=== PATIENT | female | born 1990 | race Asian ===

== ENCOUNTER 2017-11-29 09:43 | Inpatient (IN) | payer MEDICAID ==
[~2017-11-29] VITALS: Ht 165.1 cm; Wt 60.3 kg
[2017-11-29 11:04] LABS: AMPHET/METH SCREEN,URINE NEGATIVE (NEGATIVE); BARBITURATE SCREEN, URINE NEGATIVE (NEGATIVE); BENZODIAZEPINES SCREEN,URINE NEGATIVE (NEGATIVE); CANNABINOID SCREEN,URINE NEGATIVE (NEGATIVE); COCAINE SCREEN,URINE NEGATIVE (NEGATIVE); METHADONE SCREEN, URINE NEGATIVE (NEGATIVE); OPIATE SCREEN,URINE NEGATIVE (NEGATIVE)
[2017-11-29 11:05] LABS: PHENCYCLIDINE SCREEN,URINE NEGATIVE (NEGATIVE)
[2017-11-29 11:06] LABS: BASOPHILS % (AUTO) 0.6 % (0.0-2.0); EOSINOPHILS % (AUTO) 0 % (1.0-6.0); HEMATOCRIT 39.2 % (36-46); HEMOGLOBIN 13.1 g/dL (12.0-16.0); LYMPHOCYTES # (AUTO) 0.8 K/uL (1.0-4.8); LYMPHOCYTES % (AUTO) 10.3 % (22.0-44.0); MEAN CORPUSCULAR HGB CONC 33.4 G/dL (31.0-37.0); MEAN CORPUSCULAR VOLUME 84 fL (80-100); MONOCYTES # (AUTO) 0.5 K/uL (0.1-1.0); MONOCYTES % (AUTO) 6.3 % (2.0-9.0); NEUTROPHILS # (AUTO) 6.3 K/uL (1.8-7.7); NEUTROPHILS % (AUTO) 82.8 % (40.0-70.0); PLATELET COUNT (AUTO) 321 K/uL (150-450); RED BLOOD CELL COUNT(AUTO) 4.68 MIL/uL (4.00-5.20); RED CELL DISTRIBUTION WIDTH 13.3 % (11.5-14.5)
[2017-11-29 11:24] LABS: ANION GAP 9 mmol/L (8-16); CARBON DIOXIDE 25 mmol/L (22-29); CHLORIDE 101 mmol/L (98-107); CREATININE 0.81 mg/dL (0.60-1.30); GLOMERULAR FILTR. RATE CALC > 60 mL/min (>60); GLUCOSE,RANDOM 102 mg/dL (70-110); SODIUM SERUM 135 mmol/L (136-145); UREA NITROGEN, BLOOD 9 mg/dL (7-18)
[2017-11-29 11:30] LABS: ALANINE AMINOTRANSFERASE 25 U/L (12-78); ALBUMIN 4.2 g/dL (3.4-5.0); ALKALINE PHOSPHATASE 67 U/L (46-116); ASPARTATE AMINOTRANSFERASE 18 U/L (15-37); BILIRUBIN,TOTAL 0.5 mg/dL (0.1-1.0); TOTAL PROTEIN, SERUM 7.8 g/dL (6.4-8.2)
[2017-11-29] MEDS ORDERED: HALOPERIDOL 5 MG TABLET PO ONE (12:15)
[2017-11-29] MEDS ORDERED: LORazepam 2 MG TABLET PO ONE (12:15)
[2017-11-29] MEDS ORDERED: DiphenhydrAMINE HCL 25 MG CAPSULE PO ONE (12:15)
[2017-11-29] MEDS ORDERED: LORazepam 2 MG TABLET PO PRN (12:45)
[2017-11-29] MEDS ORDERED: ZOLPIDEM TARTRATE 10 MG TABLET PO PRN (12:45)
[2017-11-29] MEDS ORDERED: HALOPERIDOL 5 MG TABLET PO PRN (12:45)
[2017-11-29 13:06] LABS: CHOLESTEROL 199 mg/dL (131-200); HDL CHOLESTEROL 67 mg/dL (40-60); LDL CHOL (CALC.) 120 mg/dL (0-130); TRIGLYCERIDES 59 mg/dL (15-150)
[2017-11-29 14:56] VITALS: BP 135/90
[2017-11-30] MEDS ORDERED: INFLUENZA VIRUS VACCINE QVS 2017-18 (3YR+)/PF 60 MCG/0.5 ML SYRINGE IM ONE (00:45)
[2017-11-30 06:58] VITALS: BP 128/78
[2017-11-30 08:37] VITALS: BP 108/62
[2017-11-30] MEDS ORDERED: IBUPROFEN 400 MG TABLET PO PRN (15:15)
[2017-11-30] MEDS ORDERED: ACETAMINOPHEN 325 MG TABLET PO PRN (15:15)
[2017-11-30 16:28] VITALS: BP 102/69
[2017-11-30] MEDS: OLANZapine 5 MG RAPDIS TABLET PO SCH (17:23)
[2017-12-01 08:38] VITALS: BP 100/51
[2017-12-01] MEDS: OLANZapine 5 MG RAPDIS TABLET PO SCH ×2 (08:41→17:07)
[2017-12-01 16:17] VITALS: BP 106/61
[2017-12-02] MEDS: OLANZapine 5 MG RAPDIS TABLET PO SCH (08:27)
[2017-12-02 08:54] VITALS: BP 117/77
[2017-12-02] MEDS ORDERED: OLAN5TAB40 PO (12:48)
== END 2017-12-02 14:30 | disposition home or self-care (01) | DRG 751 ==
LOC: EMS 09:45 → B3A 13:14
PROVIDERS: ADMIT Psychiatry & Neurology Child & Adolescent Psychiatry; ATTEND Psychiatry & Neurology Child & Adolescent Psychiatry
PROC: 3E0234Z Introduction of Serum, Toxoid and Vaccine into Muscle, Percutaneous Approach (ICD-10-PCS; principal; 2017-11-30)
DX: F29 Unspecified psychosis not due to a substance or known physiological condition (principal); I10 Essential (primary) hypertension; F17.200 Nicotine dependence, unspecified, uncomplicated; F10.10 Alcohol abuse, uncomplicated; F19.10 Other psychoactive substance abuse, uncomplicated; Z23 Encounter for immunization
CPT/HCPCS: 99285; G0480

== ENCOUNTER 2021-03-08 15:53 | Inpatient (IN) | payer MEDICAID ==
[~2021-03-08] VITALS: Ht 162.6 cm; Wt 78.6 kg
[~2021-03-08 15:53] MED LIST: OLAN5TAB40 PO
[2021-03-08] MEDS ORDERED: HALOPERIDOL 5 MG TABLET PO PRN (17:00)
[2021-03-08 17:15] VITALS: BP 119/78
[2021-03-09 00:41] VITALS: BP 117/73
[2021-03-09] MEDS ORDERED: IBUPROFEN 600 MG TABLET PO PRN (07:15)
[2021-03-09] MEDS ORDERED: BENZOCAINE/MENTHOL LOZENGE PO PRN (07:15)
[2021-03-09] MEDS ORDERED: ACETAMINOPHEN 325 MG TABLET PO PRN (07:15)
[2021-03-09] MEDS ORDERED: BACITRACIN 28 GM OINTMENT TP PRN (07:15)
[2021-03-09] MEDS ORDERED: MAG HYDROX/AL HYDROX/SIMETH ES 30 ML SUSPENSION UDCUP PO PRN (07:15)
[2021-03-09] MEDS ORDERED: CloNIDine HCL 0.1 MG TABLET PO PRN (07:15)
[2021-03-09] MEDS ORDERED: DOCUSATE SODIUM 100 MG CAPSULE PO PRN (07:15)
[2021-03-09] MEDS ORDERED: PETROLATUM,WHITE 28 GM JELLY TP PRN (07:15)
[2021-03-09] MEDS ORDERED: OMEPRAZOLE 20 MG CAPSULE PO PRN (07:15)
[2021-03-09] MEDS ORDERED: MAGNESIUM HYDROXIDE SUSPENSION 30 ML UDCUP PO PRN (07:15)
[2021-03-09] MEDS ORDERED: ONDANSETRON HCL 4 MG TABLET PO PRN (07:15)
[2021-03-09] MEDS ORDERED: ALBUTEROL SULFATE HFA 90 MCG/PUFF 8 GM INHALER IH PRN (07:15)
[2021-03-09] MEDS ORDERED: LOPERAMIDE HCL 2 MG CAPSULE PO PRN (07:15)
[2021-03-09 08:36] VITALS: BP 139/89
[2021-03-09 16:18] VITALS: BP 122/71
[2021-03-09] MEDS: LORazepam 2 MG TABLET PO PRN (16:24)
[2021-03-10] MEDS: ZOLPIDEM TARTRATE 10 MG TABLET PO PRN ×2 (00:54→21:00)
[2021-03-10 00:58] VITALS: BP 121/87
[2021-03-10 08:06] VITALS: BP 124/77
[2021-03-10] MEDS: LORazepam 2 MG TABLET PO PRN (08:34)
[2021-03-10 16:05] VITALS: BP 113/66
[2021-03-11 03:40] VITALS: BP 134/84
[2021-03-11] MEDS: RisperiDONE 1 MG TABLET PO SCH ×2 (08:34→16:27)
[2021-03-11 08:49] VITALS: BP 133/86
[2021-03-11 16:13] VITALS: BP 125/76
[2021-03-11] MEDS: ZOLPIDEM TARTRATE 10 MG TABLET PO PRN (21:41)
[2021-03-12 00:21] VITALS: BP 126/85
[2021-03-12] MEDS: RisperiDONE 1 MG TABLET PO SCH ×2 (08:53→16:33)
[2021-03-12 08:56] VITALS: BP 126/81
[2021-03-12] MEDS: LORazepam 2 MG TABLET PO PRN (13:08)
[2021-03-12 16:14] VITALS: BP 120/84
[2021-03-13 00:20] VITALS: BP 104/61
[2021-03-13 07:18] LABS: COVID AG,FIA SOURCE NASOPHARYNGEAL
[2021-03-13 08:13] VITALS: BP 121/65
[2021-03-13] MEDS: RisperiDONE 1 MG TABLET PO SCH ×2 (08:16→16:27)
[2021-03-13 16:22] VITALS: BP 117/60
[2021-03-13] MEDS: ZOLPIDEM TARTRATE 10 MG TABLET PO PRN (22:08)
[2021-03-14 06:00] VITALS: BP 138/88
[2021-03-14] MEDS: LORazepam 2 MG TABLET PO PRN ×2 (06:39→16:09)
[2021-03-14 08:08] VITALS: BP 130/64
[2021-03-14] MEDS: RisperiDONE 3 MG TABLET PO SCH ×2 (08:14→16:07)
[2021-03-14 16:15] VITALS: BP 111/65
[2021-03-15 00:38] VITALS: BP 118/67
[2021-03-15] MEDS: RisperiDONE 3 MG TABLET PO SCH (08:02)
[2021-03-15 08:05] VITALS: BP 116/61
[2021-03-15] MEDS ORDERED: RISP3TAB35 PO (09:24)
== END 2021-03-15 15:19 | disposition home or self-care (01) | DRG 750 ==
LOC: B2S 19:11
PROVIDERS: ADMIT Psychiatry & Neurology Psychiatry; ATTEND Psychiatry & Neurology Psychiatry
DX: F25.9 Schizoaffective disorder, unspecified (principal); F17.200 Nicotine dependence, unspecified, uncomplicated; F19.10 Other psychoactive substance abuse, uncomplicated; F41.9 Anxiety disorder, unspecified; G47.00 Insomnia, unspecified; Z71.6 Tobacco abuse counseling; Z20.822 Contact with and (suspected) exposure to COVID-19
CPT/HCPCS: 87426; Z7610